=== PATIENT | female | born 1980 | race African-American/Black ===

== ENCOUNTER → 2016-07-28 | Outpatient (CLI) | payer OTHER ==
[~2016-07-28] MED LIST: CEPH-460 PO; DYAZ37.5 PO; DYAZ37.57 PO; IBUP-232 PO; IBUP800T23 PO; IMIT50TA PO; METH750T2 PO; MULT1TAB84 PO; PERC5TAB12 PO; SUMA50TA2 PO; VENTAER INH; VITA100036 PO; [UNRECOGNIZED DRUG - OTHER]
[2016-07-28 08:02] LABS: HEMATOCRIT 35.8 % (35.0-46.0); MEAN CELL VOLUME 83.3 FL (80.0-100.0); MEAN CORPUSCULAR HEMOGLOBIN 27.9 PG (27.0-34.0); MEAN CORPUSCULAR HGB CONC 33.4 % (32.0-36.0); PLATELET COUNT 335 TH/MM3 (150-450); RED CELL DISTRIBUTION WIDTH 13.9 % (11.6-17.2); REVIEW FLAG FINAL; WHITE BLOOD COUNT 6.5 TH/MM3 (4.0-11.0)
[2016-07-31 03:54] LABS: C TRACHOMATIS IGA <1:16 (()); C TRACHOMATIS IGG <1:64 (()); C TRACHOMATIS IGM <1:10 (())
== END ==
LOC: CLAB 07:17
DX: N97.9 Female infertility, unspecified (principal); D25.9 Leiomyoma of uterus, unspecified
CPT/HCPCS: 36415; 85027; 86631; 86632

== ENCOUNTER 2016-09-10 11:04 | Inpatient (IN) | payer OTHER ==
[~2016-09-10] VITALS: Ht 160 cm; Wt 77.9 kg
[~2016-09-10 11:04] MED LIST changes: -CEPH-460 PO; -DYAZ37.5 PO; -IBUP-232 PO; -IMIT50TA PO; -METH750T2 PO; -MULT1TAB84 PO; -PERC5TAB12 PO; -VENTAER INH; -VITA100036 PO; -[UNRECOGNIZED DRUG - OTHER]
[2016-09-12] MEDS ORDERED: MULT1TAB84 PO (14:03)
[2016-09-12] MEDS ORDERED: VITA100036 PO (14:03)
[2016-09-12] MEDS ORDERED: VENTAER INH (14:06)
--- NOTE | 2016-09-14 21:20 | MH ---
cc: BRAULIO [place] DATE OF ADMISSION 09/15/2016 DATE OF 1980 HISTORY OF THE PRESENT ILLNESS The patient is a 36-year-old 0 who presents with a history of heavy menstrual cycles, pelvic pressure who desires operative intervention. PAST MEDICAL HISTORY Significant for: 1. Hypertension. 2. Asthma. PAST SURGICAL HISTORY Significant for: Breast reduction. OB HISTORY Negative. GYNECOLOGIC HISTORY No history of STDs. She had an abnormal Pap in 2011 but Paps have been normal since then. ALLERGIES None. MEDICATIONS 1. Albuterol. 2. Triamterene. 3. Hydrochlorothiazide. FAMILY HISTORY Mother has a history of uterine fibroids. Maternal grandmother has heart disease, diabetes and renal cancer. Maternal aunt also has diabetes. SOCIAL HISTORY Negative for cigarettes, alcohol or street drugs. The patient is single and works in [employer] PHYSICAL EXAMINATION VITAL SIGNS: Her height is 5' 3". Her weight is 171. Her blood pressure is 120/80. GENERAL: She is in no acute distress. HEART: Regular rate and rhythm. LUNGS: Her lungs are clear to auscultation bilaterally. ABDOMEN: Soft, nontender, nondistended. PELVIC: On bimanual exam the patient has a 8-10 weeks size uterus. No adnexal masses or tenderness noted. IMAGING Also the patient's ultrasound results are noted. The patient had several uterine fibroids noted on ultrasound. The largest fibroid was noted to be about 6 x 5 cm and also a lower uterine segment fibroid that measured 3.0 x 2.6 cm. IMPRESSION Uterine fibroids. PLAN The plan is for an abdominal myomectomy. Risks, benefits, alternatives reviewed. We will proceed. MD NARESH Chaves/CARLOS MANUEL /8:49 PM /9:11 PM EMMANUELLE
[2016-09-15] MEDS ORDERED: ceFAZolin 2 GM PREMIX 50 ML IV SCH (07:45)
[2016-09-15] MEDS ORDERED: DYAZ37.5 PO (07:59)
[2016-09-15] MEDS ORDERED: IMIT50TA PO (07:59)
[2016-09-15 08:00] VITALS: BP 141/81; PULSE 95; RESP 16; TEMP 98.7; O2SAT 100
[2016-09-15] MEDS ORDERED: METOPROLOL TARTRATE 25 MG TAB PO PRN (08:00)
[2016-09-15] MEDS ORDERED: INSULIN HUMAN REGULAR 1,000 UNITS/10 ML VIAL SQ PRN (08:00)
[2016-09-15] MEDS ORDERED: LACTATED RINGER'S 1000 ML IV SCH (08:00)
[2016-09-15] MEDS ORDERED: SODIUM CHLORID 0.9% 500 ML IV SCH (08:00)
[2016-09-15 08:15] LABS: BASOPHIL % 0.9 % (0.0-2.0); EOSINOPHIL # 0.1 TH/MM3 (0-0.4); EOSINOPHIL % 1.8 % (0.0-4.0); HEMATOCRIT 35.2 % (35.0-46.0); HEMO FLAGS DIFF FINAL; LYMPHOCYTE # 2.1 TH/MM3 (1.0-4.8); MEAN CELL VOLUME 83.1 FL (80.0-100.0); MEAN CORPUSCULAR HEMOGLOBIN 27.5 PG (27.0-34.0); NEUT % 51.3 % (16.0-70.0); PLATELET COUNT 350 TH/MM3 (150-450); RED BLOOD COUNT 4.23 MIL/MM3 (4.00-5.30); RED CELL DISTRIBUTION WIDTH 13.2 % (11.6-17.2); WHITE BLOOD COUNT 5.8 TH/MM3 (4.0-11.0)
[2016-09-15] MEDS ORDERED: MIDAZOLAM HCL 2 MG/2 ML VIAL ONE (10:02)
[2016-09-15] MEDS ORDERED: FAMOTIDINE 20 MG/2 ML VIAL ONE (10:02)
[2016-09-15] MEDS ORDERED: DEXAMETHASONE SOD PHOS 4 MG/ML VIAL ONE (10:03)
[2016-09-15] MEDS ORDERED: METHYLENE BLUE 10 MG/ML VIAL OTHER ONE (10:46)
[2016-09-15] MEDS ORDERED: VASOPRESSIN INJ 20 UNITS/ML VIAL ONE (10:46)
[2016-09-15] MEDS ORDERED: ACETAMINOPHEN 1000 MG/100 ML VIAL IV ONE (11:16)
[2016-09-15] MEDS ORDERED: HYDROmorphone HCL PF 2 MG/ML VIAL ONE (11:16)
[2016-09-15] MEDS ORDERED: LACTATED RINGER'S 1000 ML INJ 1,000 ML IV ONE (12:00)
[2016-09-15] MEDS ORDERED: ePHEDrine/NS 25 MG/5 ML SYR IV ONE (12:00)
[2016-09-15] MEDS ORDERED: ONDANSETRON HCL 4 MG/2 ML VIAL IV PUSH ONE (12:00)
[2016-09-15] MEDS ORDERED: NEOSTIGMINE 3 MG/3 ML SYR IV ONE (12:00)
[2016-09-15] MEDS ORDERED: PROPOFOL 200 MG/20 ML AMP IV ONE (12:00)
[2016-09-15] MEDS: LACTATED RINGER'S 1000 ML INJ 1,000 ML IV SCH ×3 (12:11→21:35)
[2016-09-15] MEDS ORDERED: DOCUSATE SODIUM 100 MG CAP PO PRN (12:15)
[2016-09-15] MEDS ORDERED: diphenhydrAMINE HCL 25 MG CAP PO PRN (12:15)
[2016-09-15] MEDS ORDERED: PROMETHAZINE HCL 25 MG TAB PO PRN (12:15)
[2016-09-15] MEDS ORDERED: oxyCODONE/ACETAMINOPHEN 5 MG/325 MG TAB PO PRN (12:15)
[2016-09-15] MEDS ORDERED: ONDANSETRON HCL 4 MG/2 ML VIAL IV PUSH PRN (12:15)
[2016-09-15] MEDS ORDERED: diphenhydrAMINE HCL 50 MG/ML VIAL IV PRN (12:15)
[2016-09-15] MEDS ORDERED: ZOLPIDEM TARTRATE 5 MG TAB PO PRN (12:15)
[2016-09-15] MEDS ORDERED: LORazepam 0.5 MG TAB PO PRN (12:15)
[2016-09-15] MEDS ORDERED: IBUPROFEN 600 MG TAB PO PRN (12:15)
[2016-09-15] MEDS ORDERED: hydrOXYzine HCL 25 MG TAB PO PRN (12:15)
[2016-09-15] MEDS ORDERED: PROMETHAZINE INJ 25 MG/ML VIAL IM PRN (12:15)
[2016-09-15] MEDS ORDERED: MORPHINE SULFATE 4 MG/ML INJ IV PRN (12:15)
[2016-09-15] MEDS ORDERED: SODIUM CHLORIDE 0.9% FLUSH 5 ML FLUSH IVF PRN (12:15)
[2016-09-15] MEDS ORDERED: *morphine SULFATE 8 MG/ML PERIprocedure ONLY ONE ×2 (12:40→12:48)
[2016-09-15] MEDS ORDERED: DO NOT ADM ANY ANTICOAGULANT DRUGS XX PRN (12:45)
[2016-09-15] MEDS ORDERED: fentaNYL CITRATE 250 MCG/5 ML AMP ONE (13:09)
[2016-09-15] MEDS ORDERED: MORPHINE SULFATE 4 MG/ML INJ ONE (13:10)
--- NOTE | 2016-09-15 13:15 | MP ---
cc: AMAURI RUSSO DATE OF SURGERY: 09/15/2016 PREOPERATIVE DIAGNOSIS Uterine fibroids. POSTOPERATIVE DIAGNOSIS Uterine fibroids, possible adenomyosis versus adenomyoma. SURGEON Amauri Russo MD and Abelardo Farrell. ANESTHESIA General plus local. ESTIMATED BLOOD LOSS 100 ccs. DRAINS Jara to gravity. SPECIMEN Uterine fibroids. COUNTS Counts were correct x2. DISPOSITION Stable in the PACU. INDICATION The patient is a 36-year-old female with a history of uterine fibroids and had an inconclusive HSG that suggested possible tubal occlusion. PROCEDURE After informed consent was obtained, the patient was prepped and draped in normal sterile fashion for surgery. Her legs were placed in the Dave stirrups. A speculum was inserted into the vagina. The anterior lip of the cervix was grasped using a single-tooth tenaculum. Her uterus sounds to 8 cm. The uterine manipulator is placed along with extension tubing and methylene blue to provide a means of chromopertubation during the procedure. Next, gloves were changed and attention turned to the abdominal portion of the case. A Pfannenstiel skin incision was made two fingerbreadths above the pubic symphysis and carried down to the underlying layer of fascia using the Bovie. The fascial incision was extended laterally using the Hanson scissors. The rectus muscles are in the midline and the peritoneum was identified, tented up and entered sharply. Next, the uterus was delivered through the abdominal incision. The patient is noted to have an anterior fibroid, a lower uterine segment fibroid and a small fibroid over towards the right side of the uterus. Thus, a linear injection was made using dilute Pitressin and a linear incision was made using the Bovie. The anterior large fibroid that was noted did come out somewhat piecemeal suggesting that there may have been adenomyosis or adenomyoma there. The majority of this fibroid was then removed approximately 90%. Next, the lower uterine segment fibroid was shelled out and was somewhat more calcified and removed without difficulty. There is a smaller fibroid approximately 1 cm, that was also removed that was on the patient's right side near that right fallopian tube. It should also be noted that chromopertubation was performed and under direct visualization free spill was noted from the patient's left fallopian tube, not from her right, but this could have been due to the fibroid's position. The Mayank was then removed as the remainder of the case was performed. It should also be noted that both tubes grossly appeared normal as did both ovaries. There was no evidence of scarring or other abnormalities noted, there were none. Next, once it was felt that the fibroids had been removed and the uterine cavity was not entered, the uterine defects were repaired in a running fashion using 2-0 Vicryl suture, closing the deep space. Once the deep space of the two incisions had been repaired, a 3-0 Monocryl suture was then used to reapproximate the serosa in a running fashion. This was done with good hemostatic result. Once this was done, there were no other defects noted. The uterus was returned to the abdominal cavity. The pelvis was irrigated and the incisions remained hemostatic. The fascia was then reapproximated using 0 Vicryl suture, using two lengths of suture that met in the midline. The subcutaneous fat was irrigated and made hemostatic. The skin was closed using 4-0 Monocryl suture in a subcuticular fashion. Once this was done the patient was awakened and extubated and then taken to the recovery room in stable condition. Amauri Russo MD TEG/TLL /12:20 PM /12:52 PM
[2016-09-15] MEDS: KETOROLAC TROMETHAMINE 30 MG/ML (IVP) VIAL IV PUSH SCH ×2 (13:36→18:53)
[2016-09-15 14:07] VITALS: BP 126/73; PULSE 81; RESP 16; TEMP 98.2; O2SAT 98
[2016-09-15 17:10] VITALS: BP 120/67; PULSE 66; RESP 16; TEMP 98.2; O2SAT 96
[2016-09-15] MEDS: ACETAMINOPHEN 1000 MG/100 ML VIAL IV SCH (18:53)
[2016-09-15 20:05] VITALS: BP 112/65; PULSE 72; RESP 16; TEMP 98.1; O2SAT 97
[2016-09-15] MEDS: SODIUM CHLORIDE 0.9% FLUSH 5 ML FLUSH IVF SCH (21:00)
[2016-09-16] VITALS (7 sets, daily range): BP systolic 107–112; BP diastolic 64–75; PULSE 58–81; RESP 16–18; TEMP 97.5–98.8; O2SAT 97–99
[2016-09-16] MEDS: KETOROLAC TROMETHAMINE 30 MG/ML (IVP) VIAL IV PUSH SCH ×2 (01:03→06:29)
[2016-09-16] MEDS: ACETAMINOPHEN 1000 MG/100 ML VIAL IV SCH ×3 (01:03→11:17)
[2016-09-16 05:59] LABS: AUTOMATED NEUTROPHIL # 10.5 TH/MM3 (1.8-7.7); BASOPHIL # 0.1 TH/MM3 (0-0.2); BASOPHIL % 0.4 % (0.0-2.0); EOSINOPHIL % 0.1 % (0.0-4.0); HEMATOCRIT 28.4 % (35.0-46.0); HEMO FLAGS DIFF FINAL; LYMPHOCYTE # 1.9 TH/MM3 (1.0-4.8); MEAN CELL VOLUME 82.2 FL (80.0-100.0); MEAN CORPUSCULAR HEMOGLOBIN 27.4 PG (27.0-34.0); MEAN CORPUSCULAR HGB CONC 33.4 % (32.0-36.0); MONO % 9.7 % (0.0-8.0); NEUT % 75.8 % (16.0-70.0); PLATELET COUNT 254 TH/MM3 (150-450); RED BLOOD COUNT 3.46 MIL/MM3 (4.00-5.30); RED CELL DISTRIBUTION WIDTH 13.5 % (11.6-17.2); WHITE BLOOD COUNT 13.9 TH/MM3 (4.0-11.0)
[2016-09-16 06:26] LABS: POTASSIUM 3.4 MEQ/L (3.5-5.1)
[2016-09-16] MEDS: SODIUM CHLORIDE 0.9% FLUSH 5 ML FLUSH IVF SCH ×2 (07:33→21:08)
[2016-09-16] MEDS: oxyCODONE/ACETAMINOPHEN 10 MG/325 MG TAB PO PRN ×2 (11:17→15:32)
[2016-09-16] MEDS: LACTATED RINGER'S 1000 ML INJ 1,000 ML IV SCH (12:11)
--- NOTE | 2016-09-16 13:02 | HHI.PR ---
Subjective Remarks Doing well, pain is controlled, eating well. denies n/v, + void Objective Vital Signs Vital Signs Date Time Temp Pulse Resp B/P Pulse Ox O2 Delivery O2 Flow Rate FiO2 09/16/16 09:59 98.1 68 16 110/65 09/16/16 05:13 98.6 81 16 107/65 99 09/16/16 01:03 98.5 79 16 111/66 98 09/15/16 20:05 98.1 72 16 112/65 97 09/15/16 17:10 98.2 66 16 120/67 96 09/15/16 14:07 98.2 81 16 126/73 98 09/15/16 13:30 98.5 72 16 125/76 99 Nasal Cannula 2 09/15/16 13:15 68 16 128/73 99 I/O 09/15/16 09/15/16 09/15/16 09/16/16 09/16/16 09/16/16 07:00 15:00 23:00 07:00 15:00 23:00 Intake Total 1400 ml 877 ml 977 ml Output Total 575 ml 625 ml 1200 ml 350 ml Balance 825 ml 252 ml -223 ml -350 ml Intake IV Total 877 ml 977 ml Other 1400 ml Output Urine Total 175 ml 625 ml 1200 ml 350 ml Estimated Blood Loss 100 ml Other 300 ml Result Diagram: 09/16/16 0553 09/16/16 0553 Objective Remarks Chest is clear, regular rate and rhythm. Abdomen is soft and non-distended. Incision is clean and dry. Ext no CCE. A/P Assessment and Plan Post Op Day 1 Abdominal myomectomy Doing well add motrin to percocet. labs stable Amauri Russo MD Sep 16, 2016 13:02
[2016-09-16] MEDS: IBUPROFEN 600 MG TAB PO PRN ×2 (13:23→23:18)
[2016-09-16] MEDS ORDERED: KETOROLAC TROMETHAMINE 30 MG/ML (IVP) VIAL IV PUSH ONE (17:30)
[2016-09-16] MEDS ORDERED: KETOROLAC TROMETHAMINE 30 MG/ML (IVP) VIAL IV PUSH PRN (17:30)
[2016-09-16] MEDS ORDERED: oxyCODONE/ACETAMINOPHEN 5 MG/325 MG TAB PO PRN (17:30)
[2016-09-17 03:09] VITALS: BP 105/69; PULSE 74; RESP 18; TEMP 97.6; O2SAT 98
[2016-09-17] MEDS: oxyCODONE/ACETAMINOPHEN 5 MG/325 MG TAB PO PRN ×2 (03:09→08:40)
[2016-09-17] MEDS: LACTATED RINGER'S 1000 ML INJ 1,000 ML IV SCH (04:11)
[2016-09-17 08:30] VITALS: BP 121/73; PULSE 64; RESP 18; TEMP 97.6; O2SAT 99
[2016-09-17] MEDS: IBUPROFEN 600 MG TAB PO PRN (08:40)
[2016-09-17] MEDS ORDERED: IBUP-232 PO (10:56)
[2016-09-17] MEDS ORDERED: PERC5TAB12 PO (10:56)
== END 2016-09-17 12:20 | disposition home or self-care (01) | DRG 743 ==
LOC: HSDI 09-15 07:19 → EDSTATUS 09-15 09:30 → H1EA 09-15 13:47
PROVIDERS: ADMIT Obstetrics & Gynecology; ATTEND Obstetrics & Gynecology
PROC: 0UB90ZZ Excision of Uterus, Open Approach (ICD-10-PCS; principal; 2016-09-15 10:13)
DX: D25.9 Leiomyoma of uterus, unspecified (principal); I10 Essential (primary) hypertension; N92.0 Excessive and frequent menstruation with regular cycle; J45.909 Unspecified asthma, uncomplicated
CPT/HCPCS: 82565; 84132; 84703; 85025; 86850; 86900; 86901; 88305; 94150; J0131; J0690; J1100; J1170; J1885; J2250; J2270; J2405; J2710; J3010; J7120; Q0169

== ENCOUNTER 2016-09-23 10:40 | Emergency (ER) | payer OTHER ==
[~2016-09-23] VITALS: Ht 160 cm; Wt 75.0 kg
[~2016-09-23 10:40] MED LIST changes: +DYAZ37.5 PO; -DYAZ37.57 PO; +IBUP-232 PO; -IBUP800T23 PO; +IMIT50TA PO; +MULT1TAB84 PO; +PERC5TAB12 PO; -SUMA50TA2 PO; +VENTAER INH; +VITA100036 PO
[2016-09-23 10:41] VITALS: BP 152/82; PULSE 94; RESP 18; TEMP 98.2; O2SAT 97
[2016-09-23 10:59] VITALS: BP 132/64; PULSE 85; RESP 18; O2SAT 100
[2016-09-23] MEDS ORDERED: CEPH-460 PO (11:52)
--- NOTE | 2016-09-23 11:53 | PD ---
HPI Chief Complaint: Skin Problem Time Seen by Provider: 11:36 Travel History International Travel<30 days: No Contact w/Intl Traveler<30days: No Traveled to known affect area: No History of Present Illness HPI 36 years old female complains of surgical wound separation. Patient status post myomectomy secondary to uterine fibroid on September 15, 2016. Patient has been doing well until she noticed the wound started opening up this morning. Patient denies any bleeding or discharge. Patient otherwise doing well postop. Patient denies any fever chills. Patient eating well. No problem with bowel movement. PFSH Past Medical History Cancer: No Cardiovascular Problems: No Diabetes: No Endocrine: No Glaucoma: No Genitourinary: No Hepatitis: No Hiatal Hernia: No Hypertension: Yes Immune Disorder: No Musculoskeletal: Yes Neurologic: Yes (MIGRAINES) Psychiatric: No Reproductive: Yes (FIBROIDS) Respiratory: Yes (ASTHMA) Thyroid Disease: No ?: Not LMP: 09/05/2016 Past Surgical History Abdominal Surgery: No AICD: No Body Medical Devices: NONE Cardiac Surgery: No Ear Surgery: No Endocrine Surgery: No Genitourinary Surgery: No Gynecologic Surgery: Yes Joint Replacement: No Oral Surgery: No Pacemaker: No Thoracic Surgery: Yes (BREAST REDUCTION) Social History Alcohol Use: No Tobacco Use: No Substance Use: No Allergies-Medications (Allergen,Severity, Reaction): Coded Allergies: No Known Allergies (Verified , 09/23/16) Reported Meds & Prescriptions Reported Meds & Active Scripts Active Keflex (Cephalexin) 500 Mg Cap 500 Mg PO Q8H Reported Ibuprofen 600 Mg Tab 600 Mg PO Q6H PRN Percocet (Oxycodone-Acetaminophen) 5-325 mg Tab 1-2 Tab PO Q4-6H PRN Dyazide (Triamterene-Hydrochlorothiazide) 37.5-25 Mg Cap 1 Cap PO HS Imitrex (Sumatriptan Succinate) 50 Mg Tab 50 Mg PO ONCE PRN If a satisfactory response has not been obtained at 2 hours, a second dose may be administered Ventolin Hfa 18 GM Inh (Albuterol Sulfate) 90 Mcg/Act Aer 2 Puff INH Q4H PRN Vitamin D3 (Cholecalciferol) 1,000 Unit Cap Unknown Dose PO DAILY Multivitamin Adults (Multiple Vitamins W/ Minerals) 1 Tab 1 Tab PO DAILY Review of Systems General / Constitutional: No: Fever Eyes: No: Visual changes HENT: No: Headaches Cardiovascular: No: Chest Pain or Discomfort Respiratory: No: Shortness of Breath Gastrointestinal: No: Abdominal Pain Genitourinary: No: Dysuria Musculoskeletal: No: Pain Skin: No Rash Neurologic: No: Weakness Psychiatric: No: Depression Endocrine: No: Polydipsia Hematologic/Lymphatic: No: Easy Bruising Physical Exam Narrative GENERAL: Well-nourished, well-developed patient. SKIN: Warm and dry. HEAD: Normocephalic. EYES: No scleral icterus. No injection or drainage. NECK: Supple, trachea midline. No JVD or lymphadenopathy. CARDIOVASCULAR: Regular rate and rhythm without murmurs, gallops, or rubs. RESPIRATORY: Breath sounds equal bilaterally. No accessory muscle use. GASTROINTESTINAL: Abdomen soft, non-tender, nondistended. MUSCULOSKELETAL: No cyanosis, or edema. BACK: Nontender without obvious deformity. No CVA tenderness. Examination of the surgical wound on the lower abdomen reveals a small area of skin dehiscence from lateral aspect of surgical wound. No active bleeding. No discharge. No redness. Data Data Last Documented VS Vital Signs Date Time Temp Pulse Resp B/P Pulse Ox O2 Delivery O2 Flow Rate FiO2 09/23/16 10:59 85 18 132/64 100 Room Air 09/23/16 10:41 98.2 MDM Medical Decision Making Medical Screen Exam Complete: Yes Emergency Medical Condition: Yes Differential Diagnosis Differential diagnoses including wound dehiscence, cellulitis, abscess. Narrative Course 36 years old female is here for wound check. Status post myomectomy Diagnosis Primary Impression: Wound dehiscence Patient Instructions: General Instructions Additional Instructions: Wound care daily. Keflex as directed. Follow-up with personal physician. Return if worse. Med/Other Pt SpecificInfo: Prescription(s) given Scripts Cephalexin (Keflex)500 Mg Xde219 Mg PO Q8H #21 CAP Ref 0 Prov:Ruslan Garcia MD 09/23/16 Disposition: 01 DISCHARGE HOME Condition: Stable Ruslan Garcia MD Sep 23, 2016 11:52
== END 2016-09-23 12:08 | disposition home or self-care (01) ==
LOC: NEPA 10:40
DX: T81.31XA Disruption of external operation (surgical) wound, not elsewhere classified, initial encounter (principal); T81.30XA Disruption of wound, unspecified, initial encounter; D25.9 Leiomyoma of uterus, unspecified; I10 Essential (primary) hypertension; Y83.8 Other surgical procedures as the cause of abnormal reaction of the patient, or of later complication, without mention of misadventure at the time of the procedure; Y92.9 Unspecified place or not applicable
CPT/HCPCS: 99283

== ENCOUNTER → 2016-12-25 | Outpatient (CLI) | payer OTHER ==
[~2016-12-25] MED LIST changes: +CEPH-460 PO
[2016-12-25 07:21] LABS: AUTOMATED NEUTROPHIL # 5.3 TH/MM3 (1.8-7.7); BASOPHIL # 0.1 TH/MM3 (0-0.2); BASOPHIL % 0.7 % (0.0-2.0); EOSINOPHIL # 0.1 TH/MM3 (0-0.4); EOSINOPHIL % 1.5 % (0.0-4.0); HEMO FLAGS DIFF FINAL; LYMPH % 29.9 % (9.0-44.0); LYMPHOCYTE # 2.6 TH/MM3 (1.0-4.8); MEAN CELL VOLUME 81.2 FL (80.0-100.0); MEAN CORPUSCULAR HEMOGLOBIN 27.1 PG (27.0-34.0); MEAN CORPUSCULAR HGB CONC 33.4 % (32.0-36.0); MONO % 7.9 % (0.0-8.0); PLATELET COUNT 341 TH/MM3 (150-450); RED BLOOD COUNT 4.18 MIL/MM3 (4.00-5.30); RED CELL DISTRIBUTION WIDTH 14.2 % (11.6-17.2); WHITE BLOOD COUNT 8.8 TH/MM3 (4.0-11.0)
== END ==
LOC: CLAB 07:02
PROVIDERS: ATTEND Obstetrics & Gynecology
DX: R53.83 Other fatigue (principal)
CPT/HCPCS: 36415; 84443; 85025

== ENCOUNTER 2017-06-19 01:23 | Emergency (ER) | payer OTHER ==
[~2017-06-19] VITALS: Ht 160 cm; Wt 85.6 kg
[~2017-06-19 01:23] MED LIST changes: +CHOL10008 PO; -VITA100036 PO
[2017-06-19 01:25] VITALS: BP 155/85; PULSE 84; RESP 18; TEMP 97.6; O2SAT 98
[2017-06-19 01:42] VITALS: BP 155/85; PULSE 84; RESP 18; TEMP 97.6; O2SAT 98
--- NOTE | 2017-06-19 01:58 | PD ---
HPI Chief Complaint: Hip Injury Time Seen by Provider: 01:51 Travel History International Travel<30 days: No Contact w/Intl Traveler<30days: No Traveled to known affect area: No History of Present Illness HPI 36 old female presents to the emergency department for complaint of left-sided hip pain that worsens with range of motion and ambulation. Patient denies any known injury or fall. Patient rates pain as severe. Last ibuprofen was Thursday evening. 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 Patient does not report any referred numbness tingling or weakness down the lower extremities and no bladder or bowel dysfunction or saddle anesthesia. Patient denies . Patient rates pain as severe. Patient states pain affects her at rest as well as with movement especially when moving from sitting to standing. Patient states this differs her ability to lay down because of 10 intensity of pain. The patient rates her pain as 7/10 in intensity. Patient states 3 days ago at time of onset of symptoms she was sitting at rest and developed sudden stabbing pain into the hip. Patient notes pain on range of motion of the hip especially abduction and abduction. Patient denies any swelling or pain into the left lower extremity. No paresthesias or weakness. Patient is unable to alleviate pain but range of motion does exacerbate symptoms. Weightbearing exacerbates symptoms. PFSH Past Medical History Narrative Medical asthma migraines hypertension kidney stones uterine fibroids myomectomy no tobacco use no alcohol use; nursing notes reviewed Asthma: Yes Cancer: No Cardiovascular Problems: No Diabetes: No Endocrine: No Glaucoma: No Genitourinary: No Hepatitis: No Hiatal Hernia: No Hypertension: Yes Immune Disorder: No Implanted Vascular Access Dvce: No Kidney Stones: Yes Musculoskeletal: Yes Neurologic: Yes (MIGRAINES) Psychiatric: No Reproductive: Yes (FIBROIDS) Respiratory: Yes (ASTHMA) Migraines: Yes Thyroid Disease: No Tetanus Vaccination: Unknown Influenza Vaccination: Yes ?: Not LMP: 05/29/17 Past Surgical History Abdominal Surgery: Yes (MYOMECTOMY 09/26) AICD: No Body Medical Devices: NONE Cardiac Surgery: No Ear Surgery: No Endocrine Surgery: No Genitourinary Surgery: No Gynecologic Surgery: Yes Joint Replacement: No Oral Surgery: No Pacemaker: No Thoracic Surgery: Yes (BREAST REDUCTION) Social History Alcohol Use: No Tobacco Use: No Substance Use: No Allergies-Medications (Allergen,Severity, Reaction): Coded Allergies: No Known Allergies (Verified Adverse Reaction, Unknown, 06/19/17) Reported Meds & Prescriptions Reported Meds & Active Scripts Active Robaxin (Methocarbamol) 750 Mg Tab 750 Mg PO Q6HR Hydrocodone-Acetamin 5-325 mg (Hydrocodone/Acetaminophen) 5 Mg-325 Mg Tablet 5 Mg PO Q6HR PRN Zofran Odt (Ondansetron Odt) 4 Mg Tab 4 Mg SL Q6HR PRN Reported Ibuprofen 600 Mg Tab 600 Mg PO Q6H PRN Dyazide (Triamterene-Hydrochlorothiazide) 37.5-25 Mg Cap 1 Cap PO HS Imitrex (Sumatriptan Succinate) 50 Mg Tab 50 Mg PO ONCE PRN If a satisfactory response has not been obtained at 2 hours, a second dose may be administered Ventolin Hfa 18 GM Inh (Albuterol Sulfate) 90 Mcg/Act Aer 2 Puff INH Q4H PRN Review of Systems Except as stated in HPI: all other systems reviewed are Neg General / Constitutional: No: Fever, Chills HENT: No: Congestion Cardiovascular: No: Chest Pain or Discomfort Respiratory: No: Shortness of Breath Gastrointestinal: No: Abdominal Pain Genitourinary: No: Flank Pain Musculoskeletal: Positive: Myalgias, Arthralgias, Limited ROM, Pain (left hip left hip) Skin: No Rash, No Itching Neurologic: No: Weakness, Focal Abnormalities, Paresthesia, Incontinence, Sensory Disturbance Psychiatric: No: Anxiety Hematologic/Lymphatic: No: Lymph Node Enlargement Physical Exam Narrative GENERAL: Well-developed well-nourished female in no acute distress no respiratory distress SKIN: Warm and dry. HEAD: Normocephalic. EYES: No scleral icterus. No injection or drainage. NECK: Supple, trachea midline. No JVD or lymphadenopathy. CARDIOVASCULAR: Regular rate and rhythm without murmurs, gallops, or rubs. RESPIRATORY: Breath sounds equal bilaterally. No accessory muscle use. GASTROINTESTINAL: Abdomen soft, non-tender, nondistended. MUSCULOSKELETAL: No cyanosis, or edema. Pain to palpation to the lateral aspect of the left hip but is able to demonstrate intact range of motion with hip flexion extension and internal/external rotation abduction and abduction increased discomfort distally extremity is neurovascular tendon intact: No redness no induration. Dorsalis pedis pulse 2+ to palpation posterior tibialis pulses 2+ to palpation. BACK: Nontender without obvious deformity. No tenderness to palpation along the lumbar spine were over the SI joints bilaterally. DTRs 2+ and equal. No CVA tenderness. Data Data Last Documented VS Vital Signs Date Time Temp Pulse Resp B/P (MAP) Pulse Ox O2 Delivery O2 Flow Rate FiO2 06/19/17 02:37 98.1 72 16 119/76 (90) 98 Room Air Orders Orders Ed Urine Pregnancytest Poc (06/19/17 01:51) Urinalysis - C+S If Indicated (06/19/17 01:51) Hip, Uni(Ap&Lat) W Ap Pelvis (06/19/17 ) Spine, Lumbar - Ltd (Ap & Lat) (06/19/17 ) Ketorolac Inj (Toradol Inj) (06/19/17 02:45) Orphenadrine Inj (Norflex Inj) (06/19/17 02:45) Oxycodone-Acetamin 5-325 Mg (Percocet (06/19/17 02:45) Ed Discharge Order (06/19/17 03:06) Labs Laboratory Tests Test 06/19/17 01:57 Urine Color YELLOW Urine Turbidity CLEAR Urine pH 6.0 Urine Specific [place] 1.027 Urine Protein NEG mg/dL Urine Glucose (UA) NEG mg/dL Urine Ketones NEG mg/dL Urine Occult Blood SMALL Urine Nitrite NEG Urine Bilirubin NEG Urine Leukocyte Esterase NEG Urine RBC 3-5 /hpf Urine WBC 0-2 /hpf Urine Squamous Epithelial Cells 0-5 /hpf Urine Bacteria NONE /hpf Microscopic Urinalysis Comment CULT NOT INDICATED MDM Medical Decision Making Medical Screen Exam Complete: Yes Emergency Medical Condition: Yes Medical Record Reviewed: Yes Interpretation(s) ua: blood poc hcg: negative L/S spine xr NABI left hip/pelvis: nabi Differential Diagnosis Hip pain, bursitis, tendinitis, arthritis, fracture, subluxation, malignancy, piriformis syndrome, sciatica, sacroiliitis, UTI, renal colic, ; also to consider septic arthritis Narrative Course Imaging studies ordered, [id number] hCG ordered, urinalysis ordered; patient administered Toradol 60 mg IM and Norflex 60 mg IM No noted improvement after Toradol and Norflex; urinalysis within normal range; [id number] negative; will administer narcotic pain medication Imaging study reveals no acute bony abnormality or bony injury Patient denies narcotic pain medication Patient notes improvement of symptoms after Toradol and Norflex Patient aware of imaging results and urinalysis results patient is encouraged to return immediately to the emergency department for worsening pain fever or any numbness tingling or weakness of the lower patient is encouraged follow-up with a primary care provider. Patient stable for outpatient management. Diagnosis Primary Impression: Left hip pain Referrals: Primary Care Physician 1 day Patient Instructions: General Instructions Additional Instructions: Take ibuprofen 800 mg as often as every 8 hours as needed for pain associated inflammation May take muscle relaxants as prescribed as needed as often as every 6 hours be cautious may cause risk of falling Zofran to be taken as needed for nausea or vomiting or nausea associated with medication use Hydrocodone 5/325 one every 6 hours as needed for pain greater than 5/10 in intensity; use with caution as may impair judgment delay reaction time increased risk for fall or cause constipation Increase fluid hydration Apply moist heat to the hip Primary care provider No work 2 days Monitor temperature every 4 hours with thermometer take as needed acetaminophen/ Tylenol for fever 100.4F or greater or may take ibuprofen/Advil/Motrin 600 mg Zofran every 6 hours for fever 100.4F or greater or may take maximum history 800 mg of ibuprofen every 8 hours for fever 100.4F or greater or for pain associated inflammation Return to the emergency for for pain fever or any concerns Med/Other Pt SpecificInfo: Prescription(s) given Scripts Methocarbamol (Robaxin) 750 Mg Tab 750 MG PO Q6HR for Muscle Spasm, #10 TAB 0 Refills Prov: Oumou Mejia MD 06/19/17 Hydrocodone/Acetaminophen (Hydrocodone-Acetamin 5-325 mg) 5 Mg-325 Mg Tablet 5 MG PO Q6HR Y for PAIN GREATER THAN 5, #10 Prov: Oumou Mejia MD 06/19/17 Ondansetron Odt (Zofran Odt) 4 Mg Tab 4 MG SL Q6HR Y for Nausea/Vomiting, #10 TAB 0 Refills Prov: Oumou Mejia MD 06/19/17 Disposition: 01 DISCHARGE HOME Condition: Stable Oumou Mejia MD Jun 19, 2017 01:58
[2017-06-19 02:05] LABS: BLOOD, URINE SMALL (NEG); GLUCOSE,URINE NEG (NEG); KETONE, URINE NEG (NEG); NITRITE,URINE NEG (NEG)
[2017-06-19 02:11] LABS: COMMENT (UR) CULT NOT INDICATED; CULTURE IF INDICATED CULT NOT INDICATED; SQUAMOUS EPITHELIAL CELL URINE 0-5 /hpf (0-5); URINE COLOR YELLOW (YELLW/STRAW); WBC, URINE 0-2 /hpf (0-5)
--- NOTE | 2017-06-19 02:27 | RADRPT ---
EXAM DATE/TIME: 06/19/2017 02:06 [facility] COMPARISON: No previous studies available for comparison. INDICATIONS : Lower back pain for 3 days with no known injury MEDICAL HISTORY : None. SURGICAL HISTORY : None. ENCOUNTER: Initial ACUITY: 3 days PAIN SCORE: 10/10 LOCATION: Lumbar spine FINDINGS: Two view examination was performed. There are five non-rib bearing vertebral bodies. The vertebral bodies are in normal alignment without evidence of subluxation or scoliosis. The disc spaces are yamilka ntained. The pedicles are intact. Bony mineralization is normal. No fracture is identified. CONCLUSION: Unremarkable limited examination of the lumbar spine. Wilner Snyder MD on June 19, 2017 at 2:26 Board Certified Radiologist. This report was verified electronically.
--- NOTE | 2017-06-19 02:27 | RADRPT ---
EXAM DATE/TIME: 06/19/2017 02:06 [facility] COMPARISON: No previous studies available for comparison. INDICATIONS : Left hip pain for 3 days with no known trauma MEDICAL HISTORY : None. SURGICAL HISTORY : None. ENCOUNTER: Initial ACUITY: 3 days PAIN SCORE: 10/10 LOCATION: Left entire hip FINDINGS: Examination of the left hip was performed with AP Pelvis. The primary and secondary trabecular patte rn of the femoral neck is intact. The hip joint is of normal width without significant sclerosis or bony hypertrophy. The acetabulum is grossly intact. CONCLUSION: Unremarkable examination of the left hip. Wilner Snyder MD on June 19, 2017 at 2:26 Board Certified Radiologist. This report was verified electronically.
[2017-06-19 02:37] VITALS: BP 119/76; PULSE 72; RESP 16; TEMP 98.1; O2SAT 98
[2017-06-19] MEDS ORDERED: KETOROLAC TROMETHAMINE 60 MG/2 ML (IM) VIAL IM ONE (02:45)
[2017-06-19] MEDS ORDERED: ORPHENADRINE INJ 60 MG/2 ML AMP IM ONE (02:45)
[2017-06-19] MEDS ORDERED: oxyCODONE/ACETAMINOPHEN 5 MG/325 MG TAB PO ONE (02:45)
[2017-06-19] MEDS ORDERED: HYDR-3516 PO (03:09)
[2017-06-19] MEDS ORDERED: ZOFR4TAB3 SL (03:09)
[2017-06-19] MEDS ORDERED: ROBA750T PO (03:09)
== END 2017-06-19 03:20 | disposition home or self-care (01) ==
LOC: PHED 01:23
DX: M25.552 Pain in left hip (principal); J45.909 Unspecified asthma, uncomplicated; I10 Essential (primary) hypertension
CPT/HCPCS: 72100; 73502; 81001; 84703; 96372; 99284; J1885; J2360

== ENCOUNTER → 2017-09-03 | Outpatient (CLI) | payer OTHER ==
[~2017-09-03] MED LIST changes: -CEPH-460 PO; -CHOL10008 PO; +HYDR-3516 PO; -MULT1TAB84 PO; -PERC5TAB12 PO; +ROBA750T PO; +ZOFR4TAB3 SL
[2017-09-03 07:52] LABS: ALBUMIN 3.6 GM/DL (3.4-5.0); ALT (GPT) 19 U/L (10-53); AST (GOT) 15 U/L (15-37); BICARBONATE 27.1 MEQ/L (21.0-32.0); BLOOD UREA NITROGEN 13 MG/DL (7-18); CALCIUM 9.1 MG/DL (8.5-10.1); CHLORIDE 104 MEQ/L (98-107); CHOLESTEROL 129 MG/DL (120-200); CREATININE 0.92 MG/DL (0.50-1.00); GLOMERULAR FILTRATION RATE 83 ML/MIN (>89); GLUCOSE,FASTING 90 MG/DL (74-99); SODIUM (NA) 138 MEQ/L (136-145)
[2017-09-03 07:54] LABS: ALKALINE PHOSPHATASE 70 U/L (45-117); CHOLESTEROL/ HDL RATIO 2.61 RATIO; HDL CHOLESTEROL 49.4 MG/DL (40.0-60.0); LDL CHOLESTEROL 67 MG/DL (0-99); TOTAL BILIRUBIN ADULT 0.5 MG/DL (0.2-1.0); TRIGLYCERIDES 62 MG/DL (42-150)
[2017-09-03 07:55] LABS: BILIRUBIN, URINE NEG (NEG); BLOOD, URINE SMALL (NEG); GLUCOSE,URINE NEG (NEG); KETONE, URINE NEG (NEG); NITRITE,URINE NEG (NEG); SQUAMOUS EPITHELIAL CELL URINE 1 /hpf (0-5); URINE COLOR YELLOW (YELLW/STRAW); URINE LEUKOCYTE ESTERASE NEG (NEG)
== END ==
LOC: CLAB 07:07
PROVIDERS: ATTEND Family Medicine Adolescent Medicine
DX: Z00.00 Encounter for general adult medical examination without abnormal findings (principal); Z79.899 Other long term (current) drug therapy
CPT/HCPCS: 36415; 80053; 80061; 81001